=== PATIENT | male | born 2000 | race Caucasian/White ===

== ENCOUNTER 2021-07-13 23:15 | Emergency (ER) | payer BC ==
[~2021-07-13] VITALS: Ht 180.3 cm; Wt 75.0 kg
[2021-07-14 00:03] VITALS: TEMP 97.2
[2021-07-14 00:56] VITALS: BP 116/78; PULSE 76
== END 2021-07-14 00:56 | disposition home or self-care (01) ==
LOC: COL.ER 23:15
DX: S01.112A Laceration without foreign body of left eyelid and periocular area, initial encounter (principal); W01.198A Fall on same level from slipping, tripping and stumbling with subsequent striking against other object, initial encounter